=== PATIENT | female | born 1930 | race Caucasian/White ===

== ENCOUNTER 2018-01-01 11:16 | Outpatient (CLI) | payer MEDICARE, OTHER | END 2018-01-01 11:18 | LOC: POD 11:16 | PROVIDERS: ATTEND Podiatrist Public Medicine | DX: L60.0 Ingrowing nail (principal); M20.41 Other hammer toe(s) (acquired), right foot; M20.42 Other hammer toe(s) (acquired), left foot; M79.674 Pain in right toe(s); M79.672 Pain in left foot; B35.1 Tinea unguium; E11.9 Type 2 diabetes mellitus without complications | CPT/HCPCS: 11721; G0463 ==